=== PATIENT | female | born 1995 | race Caucasian/White ===

== ENCOUNTER 2018-10-07 07:44 | Emergency (ER) | payer OTHER ==
[~2018-10-07] VITALS: Ht 165.1 cm; Wt 81.6 kg
[2018-10-07] MEDS ORDERED: CIPRO500 MG PO (17:56)
== END 2018-10-07 18:21 | disposition home or self-care (01) ==
LOC: ER 07:44
DX: N39.0 Urinary tract infection, site not specified (principal); B95.7 Other staphylococcus as the cause of diseases classified elsewhere

== ENCOUNTER 2022-10-30 08:32 | Outpatient (CLI) | payer OTHER ==
[~2022-10-30 08:32] MED LIST: CIPRO500 MG PO
== END 2022-10-30 09:05 | disposition home or self-care (01) ==
LOC: PRENATAL 08:32
PROVIDERS: ATTEND Obstetrics & Gynecology Maternal & Fetal Medicine
DX: Z76.1 Encounter for health supervision and care of foundling (principal)

== ENCOUNTER 2022-11-12 09:05 | Outpatient (CLI) | payer OTHER | END 2022-11-12 11:15 | disposition home or self-care (01) | LOC: PRENATAL 09:05 | PROVIDERS: ATTEND Obstetrics & Gynecology Maternal & Fetal Medicine | DX: O35.9XX0 Maternal care for (suspected) fetal abnormality and damage, unspecified, not applicable or unspecified (principal); O35.3XX0 Maternal care for (suspected) damage to fetus from viral disease in mother, not applicable or unspecified; O99.210 Obesity complicating pregnancy, unspecified trimester; Z3A.20 20 weeks gestation of pregnancy ==

== ENCOUNTER 2022-11-18 12:27 | Outpatient (CLI) | payer OTHER ==
[2022-11-18] MEDS ORDERED: PRENATAL TABLE1 EAC1 PO (12:56)
== END 2022-11-18 22:15 | disposition home or self-care (01) ==
LOC: OBS/DEL 12:27
PROVIDERS: ATTEND Obstetrics & Gynecology
DX: O23.32 Infections of other parts of urinary tract in pregnancy, second trimester (principal); N39.0 Urinary tract infection, site not specified; R10.2 Pelvic and perineal pain; Z3A.21 21 weeks gestation of pregnancy

== ENCOUNTER 2023-02-05 10:03 | Outpatient (CLI) | payer OTHER ==
[~2023-02-05 10:03] MED LIST changes: +PRENATAL TABLE1 EAC1 PO
== END 2023-02-05 11:11 | disposition home or self-care (01) ==
LOC: PRENATAL 10:03
PROVIDERS: ATTEND Obstetrics & Gynecology Maternal & Fetal Medicine
DX: O26.849 Uterine size-date discrepancy, unspecified trimester (principal); O36.8199 Decreased fetal movements, unspecified trimester, other fetus; Z3A.32 32 weeks gestation of pregnancy

== ENCOUNTER 2023-03-01 21:09 | Outpatient (CLI) | payer OTHER | END 2023-03-02 11:42 | disposition home or self-care (01) | LOC: OBS/DEL 21:09 | PROVIDERS: ATTEND Obstetrics & Gynecology | DX: O36.8130 Decreased fetal movements, third trimester, not applicable or unspecified (principal); Z3A.36 36 weeks gestation of pregnancy ==

== ENCOUNTER 2023-03-25 06:17 | Inpatient (IN) | payer OTHER ==
[~2023-03-25] VITALS: Ht 165.1 cm; Wt 3.2 kg
[2023-03-25] MEDS ORDERED: M-NATAL PLUS T1 EACH (15:46)
== END 2023-03-28 17:02 | disposition home or self-care (01) | DRG 788 ==
LOC: LDR 06:17 → OB/GYN 06:17
PROVIDERS: ADMIT Obstetrics & Gynecology; ATTEND Obstetrics & Gynecology
PROC: 4A1HXCZ Monitoring of Products of Conception, Cardiac Rate, External Approach (ICD-10-PCS; 2023-03-25)
PROC: 10D00Z1 Extraction of Products of Conception, Low, Open Approach (ICD-10-PCS; principal; 2023-03-25 16:15)
DX: O62.0 Primary inadequate contractions (principal); Z3A.39 39 weeks gestation of pregnancy; Z37.0 Single live birth; Z20.822 Contact with and (suspected) exposure to COVID-19

== ENCOUNTER 2023-09-03 07:22 | Emergency (ER) | payer OTHER ==
[~2023-09-03] VITALS: Ht 165.1 cm; Wt 91.6 kg
[~2023-09-03 07:22] MED LIST changes: +M-NATAL PLUS T1 EACH
[2023-09-03 09:37] LABS: PH,URINE 5.5 (5.0-8.0); URINE APPEARANCE Cloudy; URINE BILIRRUBIN Negative (NEGATIVE); URINE BLOOD Large; URINE COLOR Yellow; URINE GLUCOSE Negative (NEGATIVE); URINE LEUKOCYTE Moderate; URINE NITRATE Negative; URINE UROBILINOGEN 0.2 E.U./dl
[2023-09-03 09:42] LABS: URINE BACTERIA 968.9 uL (0.0-1933); URINE EPITHELIAL CELLS 38.8 uL (0.0-38.8); URINE RBC 1398.3 uL (0.0-20.8); URINE WBC 3519.5 uL (0.0-23.2)
[2023-09-03 10:41] LABS: URINE PROTEIN 100 (NEGATIVE)
[2023-09-03] MEDS ORDERED: MACRODANTIN100 M1 PO (10:43)
== END 2023-09-03 10:48 | disposition home or self-care (01) ==
LOC: ER 07:22
PROVIDERS: General Practice
DX: N39.0 Urinary tract infection, site not specified (principal); Z88.8 Allergy status to other drugs, medicaments and biological substances; Z91.013 Allergy to seafood